=== PATIENT | female | born 1955 | race Two or more races ===

== ENCOUNTER → 2025-06-24 | Outpatient (CLI) | payer OTHER, SELFPAY ==
--- NOTE | 2025-06-24 12:15 | XR_ITS ---
Examination: Bilateral hands, 6 views. Technique: AP, Oblique, Lateral each hand total 6 views Date and time of exam: June 24, 2025, 1222 hours INDICATIONS: Left hand right hand swelling and pain beginning 3 weeks ago. Findings: Moderate extra-articular bony mineralization. Minimal osteoarthritis distal interphalangeal joints No erosive arthritis No fractures No avascular necrosis Also mild osteoarthritis navicular trapezium and first carpometacarpal joint IMPRESSION: Mild osteoarthritis
[2025-06-24 14:13] LABS: Sed Rate (ESR) 39 mm/hr (0-30)
[2025-06-24 15:33] LABS: RA Screen Negative (Negative)
[2025-07-02 06:23] LABS: ANA Screen, IFA POSITIVE (NEGATIVE); ANA Titer 1:80 titer
== END | disposition home or self-care (01) ==
LOC: CDIM 12:10 → COPL 12:31
PROVIDERS: PCP Family Medicine; Referring Provider Family Medicine; Visit Provider Radiology Diagnostic Radiology
DX: M19.042 Primary osteoarthritis, left hand (principal); M19.041 Primary osteoarthritis, right hand; M25.549 Pain in joints of unspecified hand
CPT/HCPCS: 36415; 73130; 85652; 86038; 86430